=== PATIENT | male | born 1980 | race Caucasian/White ===

== ENCOUNTER 2019-08-27 16:58 | Emergency (ER) | payer SELFPAY ==
[~2019-08-27] VITALS: Ht 180.3 cm; Wt 99.0 kg
[2019-08-27] MEDS ORDERED: ondansetron 4mg rapidly disintigrating tab PO ONE (18:05)
[2019-08-27] MEDS ORDERED: clindamycin 150mg capsule PO ONE (18:05)
[2019-08-27 18:53] VITALS: BP 134/88
[2019-08-27] MEDS ORDERED: CLIN150C8 PO (19:03)
== END 2019-08-27 19:10 | disposition home or self-care (01) ==
LOC: ER 17:00
DX: S01.511A Laceration without foreign body of lip, initial encounter (principal); Z88.0 Allergy status to penicillin; Z79.2 Long term (current) use of antibiotics; W18.39XA Other fall on same level, initial encounter; Y93.01 Activity, walking, marching and hiking; Y92.89 Other specified places as the place of occurrence of the external cause; Y99.8 Other external cause status
CPT/HCPCS: 12011; 99284